=== PATIENT | male | born 1950 | race Caucasian/White ===

== ENCOUNTER 2019-10-07 07:33 | Day surgery (SDC) | payer MEDICARE ==
[2019-10-05 13:47] LABS: BASOPHILS # (AUTO) 0.02 x10^3/uL (0-0.1); BASOPHILS % (AUTO) 0 % (0-1); EOSINOPHILS # (AUTO) 0.09 x10^3/uL (0-0.4); EOSINOPHILS % (AUTO) 1 % (1-7); LYMPHOCYTES # (AUTO) 1.21 x10^3/uL (1-3.4); LYMPHOCYTES % (AUTO) 19 % (22-44); MD NO; MEAN CORPUSCULAR HEMOGLOBIN 31.1 pg (27.5-34.5); MEAN CORPUSCULAR HGB CONC 33.2 g/dL (33.2-36.2); MEAN CORPUSCULAR VOLUME 93.8 fL (81-97); MEAN PLATELET VOLUME 7.7 fL (7.4-10.4); MONOCYTES # (AUTO) 0.64 x10^3/uL (0.2-0.8); MONOCYTES % (AUTO) 10 % (2-9); NEUTROPHILS # (AUTO) 4.35 x10^3/uL (1.8-6.8); NEUTROPHILS % (AUTO) 69 % (42-75); PLATELET COUNT 276 x10^3/uL (130-400); RED BLOOD COUNT 5.15 x10^6/uL (4.38-5.82); RED CELL DISTRIBUTION WIDTH 14.7 % (9.4-14.8)
[2019-10-05 13:54] LABS: INTERNATIONAL NORMALIZED RATIO 1.04 (0.93-1.1)
[2019-10-05 14:03] LABS: ALBUMIN 3.7 g/dL (3.4-5.0); ANION GAP 4 mmol/L (5-15); CALCIUM 8.8 mg/dL (8.5-10.1); CHLORIDE 104 mmol/L (98-107)
[2019-10-05 14:05] LABS: ALANINE AMINOTRANSFERASE 20 U/L (12-78); ALKALINE PHOSPHATASE 58 U/L (45-117); BILIRUBIN,TOTAL 0.7 mg/dL (0.2-1.0); CREATININE 0.87 mg/dL (0.7-1.3); TOTAL PROTEIN 6.6 g/dL (6.4-8.2)
[~2019-10-07] VITALS: Ht 182.9 cm; Wt 83.5 kg
[~2019-10-07 07:33] MED LIST: METF500T17 PO; PIOG30TA23 PO; THYR65TA2 PO
[2019-10-07] MEDS ORDERED: VANCOMYCIN PMX 1GM/200ML 200 ML IV STA (07:42)
[2019-10-07] MEDS ORDERED: LACTATED RINGERS 1,000 ML IV SCH (08:06)
[2019-10-07 08:09] VITALS: BP 122/75
[2019-10-07] MEDS ORDERED: MIDAZOLAM 1 MG/ML, 2ML ONE (09:06)
[2019-10-07] MEDS ORDERED: FENTANYL PF 250 MCG/5ML ONE (09:06)
[2019-10-07] MEDS ORDERED: LABETALOL 5MG/ML, 20ML IV PRN (10:30)
[2019-10-07] MEDS ORDERED: ACETAMINOPHEN 325 MG TABLET PO PRN (10:30)
[2019-10-07] MEDS ORDERED: PROMETHAZINE 25 MG/ML, 1ML IV PRN (10:30)
[2019-10-07] MEDS ORDERED: OXYcodone 5 MG/5 ML ORAL.SOL UDC PO PRN (10:30)
[2019-10-07] MEDS ORDERED: PROPOFOL 10 MG/ML, 20ML ONE (10:30)
[2019-10-07] MEDS ORDERED: ONDANSETRON 2MG/ML, 2ML IV PRN (10:30)
[2019-10-07] MEDS ORDERED: hydrALAzine 20 MG/ML, 1ML IV PRN (10:30)
[2019-10-07] MEDS ORDERED: ROCURONIUM 10MG/ML,5ML ONE (10:30)
[2019-10-07] MEDS ORDERED: MEPERIDINE/PF 25MG/ML,1ML IVPush PRN (10:30)
[2019-10-07] MEDS ORDERED: DEXAMETHASONE 4 MG/ML, 1ML ONE ×2 (10:30)
[2019-10-07] MEDS ORDERED: CEFAZOLIN 1,000 MG ONE ×2 (10:31)
[2019-10-07] MEDS ORDERED: BUPIVACAINE/PF-EPI 0.5% 1:200K INFIL ONE (11:04)
[2019-10-07] MEDS ORDERED: OMNIPAQUE 180 MG/ML, 20ML VIAL IT ONE (11:08)
[2019-10-07] MEDS ORDERED: ONDANSETRON 2MG/ML, 2ML ONE (11:11)
[2019-10-07] MEDS ORDERED: FENTANYL PF 100 MCG/2ML ONE (11:56)
[2019-10-07] MEDS ORDERED: OXYcodone 5 MG/5 ML ORAL.SOL UDC ONE (11:56)
[2019-10-07] MEDS: FENTANYL PF 100 MCG/2ML IV PRN ×4 (11:59→12:20)
[2019-10-07] MEDS ORDERED: ACETAMINOPHEN 650 MG/20.3 ML UDC ONE (12:06)
[2019-10-07] MEDS ORDERED: HYDROmorphone 1 MG/ML, 1ML INJ ONE (12:13)
[2019-10-07] MEDS: HYDROmorphone 2 MG/ML, 1ML IVPush PRN ×2 (12:14→12:21)
== END 2019-10-07 14:10 | disposition home or self-care (01) ==
LOC: OR 07:33
PROVIDERS: ATTEND Orthopaedic Surgery Orthopaedic Surgery of the Spine
DX: M80.08XA Age-related osteoporosis with current pathological fracture, vertebra(e), initial encounter for fracture (principal); M54.5 Low back pain; E11.9 Type 2 diabetes mellitus without complications; E78.5 Hyperlipidemia, unspecified; E03.9 Hypothyroidism, unspecified; I10 Essential (primary) hypertension; Z79.01 Long term (current) use of anticoagulants; Z79.84 Long term (current) use of oral hypoglycemic drugs; Z79.890 Hormone replacement therapy; Z79.891 Long term (current) use of opiate analgesic; Z79.899 Other long term (current) drug therapy; Z83.3 Family history of diabetes mellitus
CPT/HCPCS: 22514; 36415; 71046; 72100; 80053; 82962; 83036; 85025; 85610; 85730; 88307; 88311; 93005; 95938; 95941; C1713; J0690; J1100; J1170; J2250; J2405; J2704; J3010; J3370; J7120; Q9965